=== PATIENT | male | born 1970 | race Caucasian/White ===

== ENCOUNTER 2016-10-19 21:31 | Emergency (ER) | payer MEDICAID ==
[~2016-10-19] VITALS: Ht 188 cm; Wt 75.0 kg
[2016-10-20] MEDS ORDERED: HYDROCODONE/ACETAMINOPHEN 5-325 MG TABLET PO ONE (02:00)
[2016-10-20] MEDS ORDERED: KETOROLAC TROMETHAMINE 60 MG/2 ML VIAL IM ONE (02:00)
[2016-10-20 03:06] VITALS: BP 127/68
== END 2016-10-20 04:00 | disposition home or self-care (01) ==
LOC: EMS 21:33
DX: S13.4XXA Sprain of ligaments of cervical spine, initial encounter (principal); M47.892 Other spondylosis, cervical region; F17.210 Nicotine dependence, cigarettes, uncomplicated; X58.XXXA Exposure to other specified factors, initial encounter; Y93.89 Activity, other specified; Y92.89 Other specified places as the place of occurrence of the external cause; Y99.8 Other external cause status
CPT/HCPCS: 72040; 96372; 99284; 99406; J1885